=== PATIENT | male | born 1975 | race Asian ===

== ENCOUNTER 2019-10-14 14:32 | Emergency (ER) | payer MEDICAID, SELFPAY ==
[~2019-10-14] VITALS: Ht 175.3 cm; Wt 83.9 kg
[2019-10-14 15:59] VITALS: BP 157/113
[2019-10-14 16:18] LABS: Basophils # (auto) 0.1 10 ^3/uL (0-0.2); Basophils % (auto) 1.4 % (0.0-2.0); Eosinophils # (auto) 0 10 ^3/uL (0-0.8); Eosinophils % (auto) 0.3 % (0.0-7.0); Hematocrit 46.6 % (41.0-53.0); Hemoglobin 15.7 g/dL (13.5-17.5); Lymphocytes # (auto) 1.2 10 ^3/uL (0.4-5.4); Lymphocytes % (auto) 30.8 % (10.0-50.0); Mean Corpuscular Hgb Conc. 33.7 g/dL (32.0-36.0); Mean Corpuscular Volume 97.7 fL (80.0-100.0); Monocytes # (auto) 0.4 10 ^3/uL (0-1.3); Monocytes % (auto) 11.1 % (0.0-12.0); Neutrophils # (auto) 2.3 10 ^3/uL (1.6-8.6); Neutrophils % (auto) 56.4 % (37.0-80.0); Nucleated Red Blood Cells % 0.2 %; Platelet Count (auto) 133 10^3/uL (140-450); Red Blood Cells 4.78 10^6/uL (4.5-5.90); Red Cell Distribution Width 13.8 % (11.8-14.3)
[2019-10-14 16:30] LABS: Albumin 3.9 g/dL (3.4-5.0); Calcium 9.2 mg/dL (8.5-10.1); Potassium 3.8 mmol/L (3.5-5.1)
[2019-10-14 16:32] LABS: BUN/Creatinine Ratio 16.9
[2019-10-14 16:35] LABS: Bilirubin, Total 0.9 mg/dL (0.2-1.0)
[2019-10-14 16:36] LABS: INR 0.94 (0.9-1.15); Partial Thromboplastin Time 25.4 sec (23.64-32.05)
== END 2019-10-14 18:04 | disposition home or self-care (01) ==
LOC: ER 14:32
DX: J06.9 Acute upper respiratory infection, unspecified (principal); F10.10 Alcohol abuse, uncomplicated; F17.210 Nicotine dependence, cigarettes, uncomplicated; Z20.828 Contact with and (suspected) exposure to other viral communicable diseases
CPT/HCPCS: 36415; 71045; 80053; 85025; 85610; 85730; 87070; 87880; 93005; 99285; C9803; U0003; 87635

== ENCOUNTER → 2020-01-23 | Emergency (ER) | payer SELFPAY ==
[~2020-01-23] VITALS: Ht 177.8 cm; Wt 95.3 kg
[~2020-01-23] MED LIST: KETOROLAC TROMETH 30 MG/ML 1ML VIAL IV ONE; PROMETHAZINE HCL 25 MG/ML 1ML IV ONE; SODIUM CHLORIDE 0.9% 1,000 ML IV ONE; TAMSULOSIN HYDROCHLORIDE 0.4 MG CAP PO ONE; THIAMINE 100mg/ml INJ (200mg/2ml VIAL) IV ONE
[2020-01-23 06:50] LABS: Urine Amorphous Crystal FEW /hpf (None Seen); Urine Bacteria NONE SEEN /hpf (None Seen); Urine Blood 3+ /uL (Negative); Urine Mucus FEW (None Seen); Urine Specific Gravity 1.021 (1.001-1.035); Urine WBC 17 /hpf (0 - 3); Urine WBC Clumps PRESENT /hpf (None Seen)
[2020-01-23 07:09] LABS: Amphetamine Screen, Urine NEGATIVE (NEGATIVE); Barbiturate Scree,Urine NEGATIVE (NEGATIVE); Benzodiazephine Screen, Urine NEGATIVE (NEGATIVE); Cannabinoid Screen, Urine POSITIVE (NEGATIVE); Cocaine Screen, Urine NEGATIVE (NEGATIVE); Phencyclidine Screen, Urine NEGATIVE (NEGATIVE)
[2020-01-23 07:18] LABS: Opiate Scree,Urine NEGATIVE (NEGATIVE)
[2020-01-23 07:23] LABS: Basophils # (auto) 0 10 ^3/uL (0-0.2); Eosinophils # (auto) 0 10 ^3/uL (0-0.8); Lymphocytes # (auto) 0.8 10 ^3/uL (0.4-5.4); Lymphocytes % (auto) 12.9 % (10.0-50.0); Red Blood Cells 4.43 10^6/uL (4.5-5.90)
[2020-01-23 07:26] LABS: Basophils % (auto) 0.5 % (0.0-2.0); Eosinophils % (auto) 0.1 % (0.0-7.0); Hemoglobin 15.7 g/dL (13.5-17.5); Mean Corpuscular Hemoglobin 35.5 pg (28.0-32.0); Mean Corpuscular Hgb Conc. 34.9 g/dL (32.0-36.0); Mean Corpuscular Volume 101.6 fL (80.0-100.0); Monocytes # (auto) 0.6 10 ^3/uL (0-1.3); Monocytes % (auto) 9.4 % (0.0-12.0); Neutrophils # (auto) 4.5 10 ^3/uL (1.6-8.6); Neutrophils % (auto) 77.1 % (37.0-80.0); Platelet Count (auto) 200 10^3/uL (140-450); Red Cell Distribution Width 14.8 % (11.8-14.3); White Blood Cell 5.8 10^3/uL (4.4-10.8)
[2020-01-23 07:52] LABS: Albumin 3.9 g/dL (3.4-5.0); Anion Gap 8 (5-15); Blood Urea Nitrogen 9 mg/dL (7-18); Calcium 9.5 mg/dL (8.5-10.1); Carbon Dioxide 27 mmol/L (21-32); Chloride 101 mmol/L (98-107); Potassium 3.7 mmol/L (3.5-5.1); Sodium 136 mmol/L (136-145)
[2020-01-23 07:55] LABS: Amylase 26 U/L (25-115); BUN/Creatinine Ratio 8.7; GFR African American 101 mL/min; GFR Non-African American 84 mL/min; Glucose 124 mg/dL (74-106); Lipase 140 U/L (73-393); Magnesium 1.7 mg/dL (1.6-2.6)
[2020-01-23 08:04] LABS: Alanine Aminotransferase 294 U/L (16-61); Alkaline Phosphatase 89 U/L (45-117); Aspartate Aminotransferase 175 U/L (15-37); Bilirubin, Total 0.9 mg/dL (0.2-1.0); Total Protein 7.5 g/dL (6.4-8.2)
[2020-01-23 14:06] VITALS: BP 150/100
== END | disposition home or self-care (01) ==
LOC: ER 04:36
DX: N20.0 Calculus of kidney (principal); E86.0 Dehydration; F17.210 Nicotine dependence, cigarettes, uncomplicated; Z72.89 Other problems related to lifestyle
CPT/HCPCS: 36415; 74176; 80053; 80307; 80320; 81001; 82150; 83690; 83735; 84484; 85025; 96361; 96374; 96375; 99285; J1885; J2550; J3411; J7030